=== PATIENT | female | born 1935 | race Caucasian/White ===

== ENCOUNTER 2017-06-08 14:23 | Emergency (ER) | payer OTHER ==
[2017-06-08 14:53] LABS: BILIRUBIN NEGATIVE (NEGATIVE); BLOOD TRACE-INTACT Ery/uL (NEGATIVE); CLARITY HAZY (CLEAR); COLOR YELLOW (YELLOW); GLUCOSE (U) 1+ mg/dL (NORMAL); KETONE (U) TRACE mg/dL (NEGATIVE); LEUKOCYTES NEGATIVE Leu/uL (NEGATIVE); NITRITE NEGATIVE (NEGATIVE); PROTEIN NEGATIVE (NEGATIVE); SPECIFIC GRAVITY 1.025 (1.001-1.030); pH 5.5 (5.0-9.0)
[2017-06-08 14:54] LABS: URINARY WBC RARE
[2017-06-08 16:31] LABS: BASOPHIL 0.4 % (0-2); EOSINOPHIL 1.7 % (0-7); HCT 31.3 % (37.0-47.0); HGB 10.1 g/dl (12.5-16.0); LYMPHOCYTE 33.5 % (15-48); MCH 31.6 pg (25.0-31.0); MCHC 32.3 g/dL (32.0-36.0); MCV 97.8 fL (78.0-100.0); MONOCYTE 5.5 % (0-12); MPV 9.4 fL (6.0-9.5); NEUTROPHIL 58.9 % (41-80); PLT 90 K/uL (150-400); RDW 17.9 % (11.5-14.0); WBC 4.8 K/uL (4.0-10.5)
[2017-06-08 16:57] LABS: ALBUMIN 3.6 g/dL (3.4-4.8); BILIRUBIN - TOTAL 0.3 mg/dL (0.1-1.0); GLOBULIN (CALCULATION) 3.4 g/dL (2.2-4.2); POTASSIUM 4.7 mmol/L (3.5-5.1)
== END 2017-06-08 17:47 | disposition home or self-care (01) ==
LOC: FER 14:23
PROVIDERS: Emergency Medicine; Nurse Practitioner
DX: N20.0 Calculus of kidney (principal); Z85.6 Personal history of leukemia; Z98.890 Other specified postprocedural states; Z90.49 Acquired absence of other specified parts of digestive tract
CPT/HCPCS: 36415; 80053; 81001; 85025

== ENCOUNTER 2021-04-28 12:08 | Emergency (ER) | payer OTHER ==
[2021-04-28] MEDS ORDERED: DICLOFENAC SODI75 MG PO (14:11)
== END 2021-04-28 14:35 | disposition home or self-care (01) ==
LOC: FER 12:08
DX: M17.12 Unilateral primary osteoarthritis, left knee (principal); I10 Essential (primary) hypertension; E11.9 Type 2 diabetes mellitus without complications; Z79.82 Long term (current) use of aspirin
CPT/HCPCS: 73564; J1885

== ENCOUNTER 2021-09-17 14:48 | Emergency (ER) | payer OTHER ==
[~2021-09-17] VITALS: Ht 167.6 cm; Wt 59.0 kg
[~2021-09-17 14:48] MED LIST: DICLOFENAC SODI75 MG PO
[2021-09-17 17:33] LABS: BASOPHIL 0.2 % (0-2); EOSINOPHIL 0.1 % (0-7); HCT 25.8 % (37.0-47.0); HGB 8.2 g/dl (12.5-16.0); LYMPHOCYTE 8.6 % (15-48); MCH 32.5 pg (25.0-31.0); MCHC 31.8 g/dL (32.0-36.0); MCV 102.4 fL (78.0-100.0); MONOCYTE 4.9 % (0-12); MPV 10.1 fL (6.0-9.5); NEUTROPHIL 85.3 % (41-80); NRBC 0; PLT 146 K/uL (150-400); RBC 2.52 M/uL (4.20-5.40); WBC 15.2 K/uL (4.0-10.5)
[2021-09-17 18:01] LABS: LACTIC ACID 1.3 mmol/L (0.4-1.9)
[2021-09-17 18:10] LABS: BUN/CREAT RATIO (CALC) 27.7 RATIO; CREATININE 1.19 mg/dL (0.51-0.95); POTASSIUM 4.5 mmol/L (3.5-5.1)
[2021-09-17 19:51] LABS: INR 1.21 (0.9-1.2); PROTHROMBIN TIME 14.7 SECONDS (11.8-13.4); PTT 36.5 SECONDS (24.4-34.7)
[2021-09-18 07:52] LABS: HCT 24.4 % (37.0-47.0); HGB 7.8 g/dL (12.5-16.0)
[2021-09-18 08:16] LABS: BUN/CREAT RATIO (CALC) 24.3 RATIO; CREATININE 1.03 mg/dL (0.51-0.95); POTASSIUM 4.9 mmol/L (3.5-5.1)
[2021-09-18 09:52] LABS: INR 1.26 (0.9-1.2); PROTHROMBIN TIME 15.1 SECONDS (11.8-13.4)
[2021-09-18 10:46] LABS: PTT 76.2 SECONDS (24.4-34.7)
[2021-09-19 05:23] LABS: HCT 24.8 % (37.0-47.0); MCH 32.5 pg (25.0-31.0); MCHC 32.3 g/dL (32.0-36.0); MCV 100.8 fL (78.0-100.0); MPV 10.5 fL (6.0-9.5); RBC 2.46 M/uL (4.20-5.40); RDW 16.4 % (11.5-14.0); WBC 13.7 K/uL (4.0-10.5)
[2021-09-19 05:44] LABS: BUN/CREAT RATIO (CALC) 18.7 RATIO; CREATININE 0.91 mg/dL (0.51-0.95); POTASSIUM 4.4 mmol/L (3.5-5.1)
[2021-09-19 11:18] LABS: INR 1.21 (0.9-1.2); PROTHROMBIN TIME 14.7 SECONDS (11.8-13.4); PTT 29.7 SECONDS (24.4-34.7)
== END 2021-09-19 14:39 | disposition other institution (70) ==
LOC: FER 14:48
PROVIDERS: Emergency Medicine; Internal Medicine; Nurse Practitioner Family
DX: E11.52 Type 2 diabetes mellitus with diabetic peripheral angiopathy with gangrene (principal); I96 Gangrene, not elsewhere classified; I99.8 Other disorder of circulatory system; I48.91 Unspecified atrial fibrillation; E11.22 Type 2 diabetes mellitus with diabetic chronic kidney disease; I12.9 Hypertensive chronic kidney disease with stage 1 through stage 4 chronic kidney disease, or unspecified chronic kidney disease; N18.4 Chronic kidney disease, stage 4 (severe); Z88.2 Allergy status to sulfonamides; Z79.84 Long term (current) use of oral hypoglycemic drugs; Z20.822 Contact with and (suspected) exposure to COVID-19
CPT/HCPCS: 36415; 73630; 80048; 83605; 84145; 85014; 85018; 85025; 85610; 85730; 87040; 93005; C9113; J1644; J2543; J3370; J7050; U0002

== ENCOUNTER 2021-09-29 20:03 | Inpatient (IN) | payer OTHER ==
[~2021-09-29] VITALS: Ht 157.5 cm; Wt 84.4 kg
[2021-09-29 20:43] LABS: BASOPHIL 0.4 % (0-2); EOSINOPHIL 0.1 % (0-7); HCT 24.9 % (37.0-47.0); HGB 7.9 g/dl (12.5-16.0); LYMPHOCYTE 1.2 % (15-48); MCH 32.2 pg (25.0-31.0); MCHC 31.7 g/dL (32.0-36.0); MCV 101.6 fL (78.0-100.0); MONOCYTE 1.1 % (0-12); MPV 9.8 fL (6.0-9.5); NRBC 0; PLT 162 K/uL (150-400); RBC 2.45 M/uL (4.20-5.40); RDW 17.5 % (11.5-14.0)
[2021-09-29 20:48] LABS: WBC 34.8 K/uL (4.0-10.5)
[2021-09-29 20:49] LABS: NEUTROPHIL 94.3 % (41-80)
[2021-09-29 20:57] LABS: ALBUMIN 2.1 g/dL (3.4-5.0); BILIRUBIN - TOTAL 0.9 mg/dL (0.2-1.0); BUN/CREAT RATIO (CALC) 38.3 RATIO; CREATININE 1.49 mg/dL (0.51-0.95); GLOBULIN (CALCULATION) 4.2 g/dL; POTASSIUM 4.8 mmol/L (3.5-5.1); TOTAL PROTEIN 6.3 g/dL (6.4-8.2)
[2021-09-29 20:59] LABS: LACTIC ACID 1.6 mmol/L (0.4-1.9)
[2021-09-29 21:25] LABS: BILIRUBIN NEGATIVE (NEGATIVE); BLOOD 3+ Ery/uL (NEGATIVE); CLARITY HAZY (CLEAR); COLOR YELLOW (YELLOW); GLUCOSE (U) NORMAL (NORMAL); LEUKOCYTES TRACE Leu/uL (NEGATIVE); NITRITE NEGATIVE (NEGATIVE); PROTEIN TRACE (LOW) mg/dL (NEGATIVE); UROBILINOGEN 0.2 mg/dL (0.2-1.0); pH 5.5 (5.0-9.0)
[2021-09-29 21:32] LABS: AMORPHOUS URATES CRYSTALS MODERATE; BACTERIA 2+; MUCOUS MODERATE
[2021-09-30 06:00] LABS: BASOPHIL 0.3 % (0-2); EOSINOPHIL 0 % (0-7); HCT 20.5 % (37.0-47.0); HGB 6.7 g/dl (12.5-16.0); LYMPHOCYTE 2.2 % (15-48); MCHC 32.7 g/dL (32.0-36.0); MONOCYTE 1.4 % (0-12); MPV 10.2 fL (6.0-9.5); NEUTROPHIL 93.4 % (41-80); NRBC 0; PLT 141 K/uL (150-400); RBC 2.03 M/uL (4.20-5.40); RDW 17.6 % (11.5-14.0); WBC 26.5 K/uL (4.0-10.5)
[2021-09-30 06:13] LABS: BUN/CREAT RATIO (CALC) 38.4 RATIO; CREATININE 1.59 mg/dL (0.51-0.95); POTASSIUM 5.2 mmol/L (3.5-5.1)
[2021-09-30 06:25] LABS: TOTAL CELL COUNT 100
[2021-09-30 06:29] LABS: BAND 1 % (0-10); LYMPHOCYTE(M) 5 % (15-48); METAMYELOCYTE 2; MONOCYTE(M) 1 % (0-12); NEUTROPHILS(M) 91 % (41-80)
[2021-09-30 06:30] LABS: PLATELET ESTIMATE NORMAL; PLATELET MORPHOLOGY NORMAL
[2021-09-30 08:06] LABS: RETICULOCYTE COUNT 2.9 % (1.0-2.0)
[2021-09-30 09:17] LABS: FOLIC ACID (SERUM) 11.9 ng/mL (8.6-58.9)
[2021-09-30 09:18] LABS: IRON % SATURATION 9.6 %SAT (20-50)
[2021-09-30] MEDS ORDERED: JANUMET 50-1,01 EACH PO (13:09)
[2021-09-30] MEDS ORDERED: LOPRESSOR25 MG PO (13:09)
[2021-09-30] MEDS ORDERED: NEXIUM40 MG PO (13:09)
[2021-09-30] MEDS ORDERED: PRINIVIL20 MG PO (13:10)
[2021-09-30] MEDS ORDERED: NORVASC5 MG PO (13:10)
[2021-09-30] MEDS ORDERED: PRINIVIL10 MG PO (13:10)
[2021-09-30] MEDS ORDERED: ELIQUIS2.5 MG PO (13:10)
[2021-09-30] MEDS ORDERED: SYNTHROID25 MCG PO (13:11)
[2021-10-01 06:24] LABS: BASOPHIL 0.5 % (0-2); EOSINOPHIL 0 % (0-7); HCT 29.1 % (37.0-47.0); LYMPHOCYTE 3.1 % (15-48); MCH 32.3 pg (25.0-31.0); MONOCYTE 2.1 % (0-12); MPV 10.1 fL (6.0-9.5); NRBC 0.1; PLT 132 K/uL (150-400); RBC 2.88 M/uL (4.20-5.40); RDW 17.5 % (11.5-14.0); WBC 21.5 K/uL (4.0-10.5)
[2021-10-01 06:25] LABS: HGB 9.3 g/dl (12.5-16.0)
[2021-10-01 06:26] LABS: NEUTROPHIL 91.8 % (41-80)
[2021-10-01 06:34] LABS: INR 1.35 (0.9-1.2); PTT 62.9 SECONDS (24.4-34.7)
[2021-10-01 06:55] LABS: ALBUMIN 1.6 g/dL (3.4-5.0); BILIRUBIN - TOTAL 0.6 mg/dL (0.2-1.0); BUN/CREAT RATIO (CALC) 35.4 RATIO; CREATININE 1.58 mg/dL (0.51-0.95); GLOBULIN (CALCULATION) 3.6 g/dL; POTASSIUM 4.4 mmol/L (3.5-5.1); TOTAL PROTEIN 5.2 g/dL (6.4-8.2)
[2021-10-01 09:01] LABS: FT4 (FREE T4) 0.8 ng/dL (0.76-1.46)
--- NOTE | 2021-10-02 14:57 | NUR ---
10/02/21 Ms. Sorto was oriented, yet lethargic during the interview. She lives at home with her spouse and 34 y/o grandson, [place]. She has a rw and 3in1. PCP is Margaret Monroy. PT recommended HH. A referral was made to [facility].
[2021-10-02 18:54] LABS: BILIRUBIN 1+ mg/dL (NEGATIVE); BLOOD 2+ Ery/uL (NEGATIVE); COLOR YELLOW (YELLOW); GLUCOSE (U) NORMAL (NORMAL); LEUKOCYTES 1+ Leu/uL (NEGATIVE); NITRITE NEGATIVE (NEGATIVE); PROTEIN TRACE (LOW) mg/dL (NEGATIVE); SPECIFIC GRAVITY >=1.030 (1.001-1.030); UROBILINOGEN 0.2 mg/dL (0.2-1.0)
[2021-10-02 18:59] LABS: CLARITY HAZY (CLEAR)
[2021-10-02 19:09] LABS: URINARY WBC 20-50
[2021-10-02 19:10] LABS: BACTERIA 2+; YEAST PRESENT
[2021-10-03 06:02] LABS: BASOPHIL 0.3 % (0-2); EOSINOPHIL 0 % (0-7); HCT 30.5 % (37.0-47.0); HGB 9.5 g/dl (12.5-16.0); MCH 32.1 pg (25.0-31.0); MCHC 31.1 g/dL (32.0-36.0); MONOCYTE 2.5 % (0-12); MPV 10.5 fL (6.0-9.5); NEUTROPHIL 90.6 % (41-80); NRBC 0.1; PLT 158 K/uL (150-400); RBC 2.96 M/uL (4.20-5.40); WBC 26.1 K/uL (4.0-10.5)
[2021-10-03 06:35] LABS: BUN 73 mg/dL (7-18); BUN/CREAT RATIO (CALC) 29.3 RATIO; C-REACTIVE PROTEIN >18.00 mg/dL (<=0.90); CHLORIDE 105 mmol/L (98-107); CO2 (BICARBONATE) 14 mmol/L (21-32); CREATININE 2.49 mg/dL (0.51-0.95); GLUCOSE 213 mg/dL (74-106)
[2021-10-03 07:06] LABS: POTASSIUM 5.9 mmol/L (3.5-5.1)
[2021-10-03 10:56] LABS: LACTIC ACID 2.6 mmol/L (0.4-1.9)
[2021-10-03 14:17] LABS: BUN/CREAT RATIO (CALC) 27.8 RATIO; CREATININE 2.59 mg/dL (0.51-0.95); MAGNESIUM 1.7 mg/dL (1.8-2.4)
[2021-10-04 05:51] LABS: BASOPHIL 0.3 % (0-2); EOSINOPHIL 0 % (0-7); HCT 26.4 % (37.0-47.0); HGB 8.4 g/dl (12.5-16.0); LYMPHOCYTE 4.3 % (15-48); MCH 31.9 pg (25.0-31.0); MCHC 31.8 g/dL (32.0-36.0); MCV 100.4 fL (78.0-100.0); MONOCYTE 2.6 % (0-12); MPV 10.5 fL (6.0-9.5); NEUTROPHIL 90.6 % (41-80); NRBC 0.1; PLT 160 K/uL (150-400); RBC 2.63 M/uL (4.20-5.40); RDW 17.5 % (11.5-14.0)
[2021-10-04 06:13] LABS: ALBUMIN 1.5 g/dL (3.4-5.0); BILIRUBIN - TOTAL 0.3 mg/dL (0.2-1.0); BUN/CREAT RATIO (CALC) 27.4 RATIO; CREATININE 2.59 mg/dL (0.51-0.95); GLOBULIN (CALCULATION) 3.4 g/dL; MAGNESIUM 1.5 mg/dL (1.8-2.4); PHOSPHORUS 5.3 mg/dL (2.6-4.7); POTASSIUM 4.4 mmol/L (3.5-5.1); TOTAL PROTEIN 4.9 g/dL (6.4-8.2)
[2021-10-04 10:16] LABS: LACTIC ACID 1.5 mmol/L (0.4-1.9)
[2021-10-04 15:28] LABS: BUN/CREAT RATIO (CALC) 28.9 RATIO; CREATININE 2.46 mg/dL (0.51-0.95); POTASSIUM 4.6 mmol/L (3.5-5.1)
[2021-10-05 04:33] LABS: BUN/CREAT RATIO (CALC) 28.3 RATIO; CREATININE 2.26 mg/dL (0.51-0.95); MAGNESIUM 1.4 mg/dL (1.8-2.4); PHOSPHORUS 4.9 mg/dL (2.6-4.7); POTASSIUM 4.2 mmol/L (3.5-5.1)
[2021-10-05 04:38] LABS: BASOPHIL 0.2 % (0-2); EOSINOPHIL 0 % (0-7); HGB 7.7 g/dl (12.5-16.0); LYMPHOCYTE 4.4 % (15-48); MCH 31.7 pg (25.0-31.0); MCHC 30.8 g/dL (32.0-36.0); MCV 102.9 fL (78.0-100.0); MONOCYTE 2.4 % (0-12); MPV 9.8 fL (6.0-9.5); NEUTROPHIL 90.7 % (41-80); NRBC 0.5; PLT 143 K/uL (150-400); RBC 2.43 M/uL (4.20-5.40); RDW 18.1 % (11.5-14.0)
[2021-10-05 04:52] LABS: WBC 24.3 K/uL (4.0-10.5)
[2021-10-05 04:58] LABS: LACTIC ACID 1.5 mmol/L (0.4-1.9)
[2021-10-06 03:18] LABS: BASOPHIL 0.2 % (0-2); EOSINOPHIL 0 % (0-7); HCT 24.9 % (37.0-47.0); HGB 7.8 g/dl (12.5-16.0); LYMPHOCYTE 2.6 % (15-48); MCH 32.1 pg (25.0-31.0); MCHC 31.3 g/dL (32.0-36.0); MCV 102.5 fL (78.0-100.0); MONOCYTE 2.1 % (0-12); MPV 10.5 fL (6.0-9.5); NRBC 0.8; PLT 137 K/uL (150-400); RBC 2.43 M/uL (4.20-5.40); RDW 18.4 % (11.5-14.0)
[2021-10-06 03:19] LABS: NEUTROPHIL 91.8 % (41-80)
[2021-10-06 03:31] LABS: ALBUMIN 1.9 g/dL (3.4-5.0); BILIRUBIN - TOTAL 0.3 mg/dL (0.2-1.0); BUN/CREAT RATIO (CALC) 27.4 RATIO; C-REACTIVE PROTEIN 8.2 mg/dL (<=0.90); CREATININE 2.12 mg/dL (0.51-0.95); GLOBULIN (CALCULATION) 2.8 g/dL; POTASSIUM 3.9 mmol/L (3.5-5.1); TOTAL PROTEIN 4.7 g/dL (6.4-8.2)
--- NOTE | 2021-10-06 05:36 | NUR ---
SPOKE WITH DR. BRYANT ABOUT THE PT'S EDEMA, LABORED BREATHING, AND LOW URINE OUTPUT AND SHE RECOMENDED THAT PT CHANGE TO A PRESSOR THAT DID NOT ADD MUCH VOLUME. STOPPED THE MAGUI DRIP AND STARTED THE NEW ORDER FOR A LEVO DRIP.
[2021-10-07 03:29] LABS: BASOPHIL 0.1 % (0-2); EOSINOPHIL 0.1 % (0-7); HCT 23.4 % (37.0-47.0); HGB 7.4 g/dl (12.5-16.0); LYMPHOCYTE 2.9 % (15-48); MCH 31.8 pg (25.0-31.0); MCHC 31.6 g/dL (32.0-36.0); MCV 100.4 fL (78.0-100.0); MPV 10.1 fL (6.0-9.5); NEUTROPHIL 93.9 % (41-80); NRBC 1.1; PLT 111 K/uL (150-400); RBC 2.33 M/uL (4.20-5.40); RDW 18.2 % (11.5-14.0); WBC 19.1 K/uL (4.0-10.5)
[2021-10-07 03:46] LABS: BUN/CREAT RATIO (CALC) 25.9 RATIO; CREATININE 2.2 mg/dL (0.51-0.95); POTASSIUM 3.9 mmol/L (3.5-5.1)
[2021-10-07 14:53] LABS: BUN/CREAT RATIO (CALC) 26.4 RATIO; CREATININE 2.16 mg/dL (0.51-0.95)
--- NOTE | 2021-10-07 21:07 | NUR ---
PT LEFT VIA EMS TRANSPORT TO [facility].
== END 2021-10-07 20:50 | disposition other institution (70) | DRG 871 ==
LOC: FER 20:03 → FTCU 23:12 → FMS 23:12 → FTCU 09-30 19:00
PROVIDERS: Emergency Medicine Emergency Medical Services; Family Medicine; Internal Medicine; Internal Medicine Nephrology; Nurse Practitioner; Nurse Practitioner Family; ADMIT Internal Medicine
PROC: 0T9B70Z Drainage of Bladder with Drainage Device, Via Natural or Artificial Opening (ICD-10-PCS; 2021-09-29)
PROC: 30233N1 Transfusion of Nonautologous Red Blood Cells into Peripheral Vein, Percutaneous Approach (ICD-10-PCS; 2021-09-30)
PROC: 06HN33Z Insertion of Infusion Device into Left Femoral Vein, Percutaneous Approach (ICD-10-PCS; principal; 2021-10-03)
PROC: 3E033XZ Introduction of Vasopressor into Peripheral Vein, Percutaneous Approach (ICD-10-PCS; 2021-10-06)
DX: A41.9 Sepsis, unspecified organism (principal); R65.21 Severe sepsis with septic shock; J18.9 Pneumonia, unspecified organism; N17.0 Acute kidney failure with tubular necrosis; J96.01 Acute respiratory failure with hypoxia; G93.41 Metabolic encephalopathy; K56.600 Partial intestinal obstruction, unspecified as to cause; N30.00 Acute cystitis without hematuria; E11.52 Type 2 diabetes mellitus with diabetic peripheral angiopathy with gangrene; I96 Gangrene, not elsewhere classified; I13.0 Hypertensive heart and chronic kidney disease with heart failure and stage 1 through stage 4 chronic kidney disease, or unspecified chronic kidney disease; I48.20 Chronic atrial fibrillation, unspecified; Z66 Do not resuscitate; I50.9 Heart failure, unspecified; Z20.822 Contact with and (suspected) exposure to COVID-19; K44.9 Diaphragmatic hernia without obstruction or gangrene; M81.0 Age-related osteoporosis without current pathological fracture; D46.9 Myelodysplastic syndrome, unspecified; D50.9 Iron deficiency anemia, unspecified; M41.9 Scoliosis, unspecified; M19.90 Unspecified osteoarthritis, unspecified site; E03.9 Hypothyroidism, unspecified; E87.5 Hyperkalemia; K74.60 Unspecified cirrhosis of liver; E11.22 Type 2 diabetes mellitus with diabetic chronic kidney disease; N18.30 Chronic kidney disease, stage 3 unspecified; Z96.612 Presence of left artificial shoulder joint; Z87.442 Personal history of urinary calculi; Z90.49 Acquired absence of other specified parts of digestive tract; Z88.2 Allergy status to sulfonamides; Z79.899 Other long term (current) drug therapy; Z79.01 Long term (current) use of anticoagulants; Z98.890 Other specified postprocedural states
CPT/HCPCS: 36415; 36430; 36600; 71045; 74018; 74019; 80048; 80053; 81001; 82607; 82746; 82803; 82962; 83540; 83550; 83605; 83690; 83735; 83880; 84100; 84145; 84439; 84443; 84484; 85025; 85610; 85730; 86140; 86850; 86900; 86901; 86922; 87040; 87088; 93005; 94760; 94762; 97162; 97166; 97530-GP; 97535; C9113; J0282; J0610; J0637; J0696; J1170; J1650; J1940; J2020; J2185; J2270; J2370; J2405; J2543; J2916; J3475; J7030; J7040; J7050; J7060; J7120; P9016; P9046; P9047; U0002